=== PATIENT | male | born 1980 | race Caucasian/White ===

== ENCOUNTER 2020-12-20 14:50 | Emergency (ER) | payer OTHER, MEDICAID ==
[~2020-12-20] VITALS: Ht 160 cm; Wt 70.4 kg
[2020-12-20 14:51] VITALS: BP 140/81
== END 2020-12-20 18:12 | disposition left against medical advice (07) ==
LOC: M ED 14:50
DX: Z53.21 Procedure and treatment not carried out due to patient leaving prior to being seen by health care provider (principal)

== ENCOUNTER 2021-05-22 09:22 | Emergency (ER) | payer OTHER, MEDICAID ==
[~2021-05-22] VITALS: Ht 160 cm; Wt 72.0 kg
[2021-05-22] MEDS ORDERED: IBUP-1022 PO (12:23)
[2021-05-22] MEDS ORDERED: AUGM875T28 PO (12:23)
[2021-05-22] MEDS ORDERED: AUGMENTIN 875 MG TAB PO ONE (12:25)
[2021-05-22 12:56] VITALS: BP 140/89
== END 2021-05-22 12:58 | disposition home or self-care (01) ==
LOC: M ED 09:22
DX: K02.9 Dental caries, unspecified (principal); F17.200 Nicotine dependence, unspecified, uncomplicated

== ENCOUNTER → 2021-05-31 | Outpatient (REF) | payer MEDICAID, OTHER ==
[~2021-05-31] MED LIST: AUGM875T28 PO; IBUP-1022 PO
[2021-05-31 17:57] LABS: APPEARANCE, URINE CLEAR (CLEAR); BACTERIA, URINE AUTO NEGATIVE (NEGATIVE); BILIRUBIN, URINE AUTO NEGATIVE (NEGATIVE); BLOOD, URINE BLOOD NEGATIVE (NEGATIVE); COLOR, URINE YELLOW (YELLOW); GLUCOSE, URINE (UA) AUTO NEGATIVE (NEGATIVE); KETONE, URINE AUTO NEGATIVE (NEGATIVE); LEUKOCYTE ESTERASE, URINE AUTO NEGATIVE (NEGATIVE); MUCUS, URINE SMALL (NEGATIVE); NITRITE, URINE AUTO NEGATIVE (NEGATIVE); PROTEIN, URINE AUTO NEGATIVE (NEGATIVE); RBC, URINE AUTO 0 /HPF (0-3); SPECIFIC GRAVITY URINE AUTO 1.016 (1.002-1.035); SQUAMOUS EPITHELIAL CELL UR AU 0 /HPF (0-6); UROBILINOGEN, URINE AUTO 0.2 mg/dL (0.0-2.0); WBC, URINE AUTO 0 /HPF (0-3)
== END ==
LOC: M SMT 17:26
PROVIDERS: ATTEND Urology
DX: R35.1 Nocturia (principal)

== ENCOUNTER → 2025-01-24 | Outpatient (CLI) | payer OTHER | LOC: M PLAIMG 07:36 | PROVIDERS: ATTEND Physician Assistant | DX: H90.12 Conductive hearing loss, unilateral, left ear, with unrestricted hearing on the contralateral side (principal) ==

== ENCOUNTER 2025-03-29 09:08 | Day surgery (SDC) | payer OTHER ==
[~2025-03-29] VITALS: Ht 160 cm; Wt 72.1 kg
[~2025-03-29 09:08] MED LIST changes: +CIAL10TA PO; -IBUP-1022 PO; +IBUP600T42 PO; +LIDOCAINE 2% 100 MG/5 ML SDV (FOR ANES.) As Ordered ONE; +MIDAZOLAM INJ 2 MG/2 ML VIAL As Ordered ONE; +ONDANSETRON 4MG/2ML VIAL As Ordered ONE; +dexAMETHasone 4 MG/ML 1 ML VIAL As Ordered ONE
[2025-03-29] MEDS: LR 1,000 ML IV SCH (09:50)
[2025-03-29] MEDS ORDERED: LIDOCAINE W/EPINEPHrine 1% 20 ML VIAL As Ordered ONE (10:39)
[2025-03-29] MEDS ORDERED: ACETAMINOPHEN 1000MG/100ML IV BAG As Ordered ONE (11:18)
[2025-03-29] MEDS: CIPRODEX OTIC SUSP 7.5 ML As Ordered ONE (11:42)
[2025-03-29] MEDS: OXYMETAZOLINE 0.05% NASAL SPRAY As Ordered ONE (11:43)
[2025-03-29] MEDS: EPINEPHrine 1 MG/ML INJ 30 ML MD-VIAL As Ordered ONE (11:43)
[2025-03-29] MEDS: IPRATROPIUM 0.5 MG/ALBUTEROL 2.5 MG INH SOL UD 3 ML NEB ONE (12:50)
[2025-03-29] MEDS: ONDANSETRON 4MG/2ML VIAL IV PRN (13:02)
[2025-03-29] MEDS: MORPHINE 4 MG/ML 1 ML VIAL IV PRN (13:02)
[2025-03-29 13:58] VITALS: BP 121/72; TEMP 97.4; O2SAT 94
== END 2025-03-29 14:00 | disposition home or self-care (01) ==
LOC: M SDC 09:08
PROVIDERS: ATTEND Otolaryngology
DX: H73.892 Other specified disorders of tympanic membrane, left ear (principal); H90.12 Conductive hearing loss, unilateral, left ear, with unrestricted hearing on the contralateral side; H69.82 Other specified disorders of Eustachian tube, left ear; H72.92 Unspecified perforation of tympanic membrane, left ear; I10 Essential (primary) hypertension; G47.33 Obstructive sleep apnea (adult) (pediatric); F12.10 Cannabis abuse, uncomplicated; F17.210 Nicotine dependence, cigarettes, uncomplicated; Z79.899 Other long term (current) drug therapy
CPT/HCPCS: 20922; 69631; 69705; C1726; J0131; J0165; J1100; J2250; J2405; J3010